=== PATIENT | female | born 1960 | race Caucasian/White ===

== ENCOUNTER 2020-07-17 18:25 | Emergency (ER) | payer BC ==
[~2020-07-17] VITALS: Ht 177.8 cm; Wt 108.9 kg
[2020-07-17] MEDS ORDERED: ULTRAM 50MG TAB50 MG PO (18:45)
[2020-07-17] MEDS ORDERED: ELIQUIS5 MG PO (18:45)
[2020-07-17] MEDS ORDERED: FLECAINIDE ACE100 MG (18:45)
[2020-07-17] MEDS ORDERED: CHLORTHALIDONE25 MG PO (18:45)
[2020-07-17] MEDS ORDERED: TOPROL XL100 MG PO (18:46)
[2020-07-17] MEDS ORDERED: LIPITOR40 MG PO (18:46)
[2020-07-17] MEDS ORDERED: COZAAR 25 MG TA25 M1 (18:46)
[2020-07-17 19:09] LABS: ABSOLUTE BASOPHILS 0.1 thou/uL (0.0-0.2); ABSOLUTE EOSINOPHILS 0.1 thou/uL (0.0-0.7); ABSOLUTE LYMPHOCYTES 2.6 thou/uL (0.8-5.3); ABSOLUTE MONOCYTES 0.6 thou/uL (0.0-1.2); ABSOLUTE NEUTROPHILS 3.8 thou/uL (1.6-8.1); BASOPHILS 0.9 %; EOSINOPHILS 0.8 %; HEMATOCRIT 45.2 % (37.0-47.0); HEMOGLOBIN 15.1 gm/dL (12.0-15.0); LYMPHOCYTES 36.3 %; MCH 30.1 pg (26.0-34.0); MCHC 33.3 g/dL (28.0-37.0); MCV 90.3 fL (80.0-100.0); MONOCYTES 8.7 %; NUCLEATED RBCS 0 /100WBC; PLATELET COUNT* 245 thou/uL (150-400); POLYS 53.3 %; RBC 5.01 mil/uL (4.20-5.00); RDW-CV 13.3 % (10.5-14.5); WBC 7.2 thou/uL (4.0-11.0)
[2020-07-17 19:16] LABS: CALCIUM 9.1 mg/dL (8.5-10.1); POTASSIUM 3.2 mmol/L (3.5-5.1)
[2020-07-17 19:21] LABS: TOTAL BILIRUBIN 1.2 mg/dL (<0.1-1.0); TOTAL PROTEIN 7.2 g/dL (6.4-8.2)
[2020-07-17 20:50] VITALS: BP 152/76
--- NOTE | 2020-07-18 10:38 | EKG ---
[place] [address] ELECTROCARDIOGRAM REPORT Name: SHANNONTERRI Hagen Room: [facility]#: [id number] Admission: 07/17/20 Attend Phys: Discharge: 07/17/20 Date of : 56 Date of Service: 07/17/201916 Report #: [id number] THIS REPORT FOR: //name// [facility] ED Test Date: 2020-07-17 Test Time: 19:17:38 Pat Name: TERRI ORTEGA Department: Room: Gender: Clinical Professor: SINTIA : 1960 Requested By: Ibeth Terrazas Order Number: [id number] MD: Rich Branham Measurements Intervals [place] Rate: 68 P: 31 RI: 209 QRS: 6 QRSD: 94 T: 14 QT: 435 QTc: 463 Interpretive Statements Sinus rhythm Probable left atrial enlargement Borderline T wave abnormalities No previous ECG available for comparison Electronically Signed On 07-18-2020 10:38:38 [employer] by Rich Branham [email or web address] <ELECTRONICALLY SIGNED> By: Rich Branham MD, [facility] 07/18/20 1038 16 16 Rich Branham MD, FAC /EPI
== END 2020-07-17 20:50 | disposition home or self-care (01) ==
LOC: M.ERS 18:25
PROVIDERS: Nurse Practitioner Family
DX: I10 Essential (primary) hypertension (principal); I48.91 Unspecified atrial fibrillation; E78.00 Pure hypercholesterolemia, unspecified; Z86.73 Personal history of transient ischemic attack (TIA), and cerebral infarction without residual deficits